=== PATIENT | male | born 1940 ===

== ENCOUNTER 2016-12-31 06:26 | Day surgery (SDC) | payer MEDICARE, MEDICAID ==
[2016-12-19 08:27] VITALS: BMI 21.5
[~2016-12-31 06:26] MED LIST: Ciprofloxacin 0.3% OPTH SOLN OS SCH; Flurbiprofen 0.03% Opht SOLN OS SCH; Lactated Ringer's 500 ML IV ONE; Phenylephrine 2.5% Opht Soln OS SCH; Tropicamide 1% Opht SOLUTION OS SCH; acetaZOLAMIDE 500 mg SR Cap PO ONE
[2016-12-31] MEDS ORDERED: Lactated Ringer's 500 ML IV ONE (07:10)
[2016-12-31 07:17] VITALS: O2SAT 100
[2016-12-31] MEDS ORDERED: Midazolam 2 MG/2 ML VIAL ONE ×2 (08:01→08:57)
[2016-12-31] MEDS: Povidone Iodine Ophthalmic 5% Soln ONE ×2 (08:03→08:15)
[2016-12-31] MEDS: Tetracaine 0.5% Ophth (OR ONLY) ONE ×2 (08:04→08:15)
[2016-12-31] MEDS: Carbachol 0.01% IO ONE ×2 (08:05→08:30)
[2016-12-31] MEDS: Chondroitin/Hyaluronate Opth Syringe KIT (0.55 ml-0.5 ml) IO ONE ×2 (08:07→08:30)
[2016-12-31] MEDS: Hyaluronidase Human, Recombi 150 U/ML VIAL ONE ×2 (08:08→08:30)
[2016-12-31] MEDS: Lidocaine 2% Inj (20ml) ONE ×2 (08:08→08:15)
[2016-12-31] MEDS ORDERED: Phenylephrine 10 mg/ml Inj ONE (08:11)
[2016-12-31] MEDS: Tobramycin/Dexamethasone OPHT OINT ONE ×2 (08:32→08:42)
[2016-12-31 10:51] VITALS: BP 120/59; PULSE 63; RESP 19; TEMP 97.3
--- NOTE | 2016-12-31 10:55 | OP ---
PROCEDURE DATE: 12/31/2016 PREOPERATIVE DIAGNOSIS: CATARACT, LEFT EYE. POSTOPERATIVE DIAGNOSIS: CATARACT, LEFT EYE. OPERATIVE PROCEDURE: PHACOEMULSIFICATION, LEFT EYE, INSERTION OF POSTERIOR CHAMBER IMPLANT. SURGEON: Dr. Kevin Boothe. COSURGEON: Dr. Michael Mata. ANESTHESIA TYPE: LOCAL WITH INTRAVENOUS SEDATION. PROCEDURE: The patient was brought into the operating room, placed in supine position, prepped and dr aped in the usual fashion for ophthalmic surgery. Lid speculum inserted, lids and exposin g globe. A side port incision was made superiorly and inferiorly with a disposable sharp blade. Ant erior chamber was filled with Viscoat. A near clear corneal incision was made temporally with a 2.75 millimeter keratome. Capsulorrhexis was then performed with Utrata forceps. Hydrodissection parul d out with balanced salt solution. Nucleus was phacoemulsified. Remaining cortical fragments were r emoved with a split irrigation and aspiration system. The capsular sac was filled with Provisc. A p osterior chamber lens was then injected into the capsular sac and rotated into horizontal position. Provisc was aspirated out of the anterior chamber. The pupil was constricted with Miochol. The woun d was found to be watertight. Topical Betadine, Timoptic and TobraDex ointment and pressure patch we re applied. The patient tolerated the procedure well. Kevin Boothe MD cc: [id number] TT: 12/31/2016 10:54:11 tn
== END 2016-12-31 09:43 | disposition home or self-care (01) ==
LOC: C.SDS 06:26
PROVIDERS: ATTEND Ophthalmology
DX: H26.9 Unspecified cataract (principal)
CPT/HCPCS: 66984; J2250; J2370; J3010; J3470; J7120; V2632

== ENCOUNTER 2017-02-04 06:58 | Day surgery (SDC) | payer MEDICARE, MEDICAID ==
[2016-12-19 08:25] VITALS: BMI 21.5
[~2017-02-04 06:58] MED LIST changes: +Ciprofloxacin 0.3% OPTH SOLN OD SCH; -Ciprofloxacin 0.3% OPTH SOLN OS SCH; +Flurbiprofen 0.03% Opht SOLN OD SCH; -Flurbiprofen 0.03% Opht SOLN OS SCH; +Phenylephrine 2.5% Opht Soln OD SCH; -Phenylephrine 2.5% Opht Soln OS SCH; +Tropicamide 1% Opht SOLUTION OD SCH; -Tropicamide 1% Opht SOLUTION OS SCH
[2017-02-04] MEDS ORDERED: Carbachol 0.01% IO ONE (07:15)
[2017-02-04] MEDS ORDERED: Povidone Iodine Ophthalmic 5% Soln ONE (07:15)
[2017-02-04] MEDS ORDERED: Tetracaine 0.5% Ophth (OR ONLY) ONE (07:16)
[2017-02-04] MEDS ORDERED: Lidocaine 2% Inj (20ml) ONE (07:16)
[2017-02-04] MEDS ORDERED: Tobramycin/Dexamethasone OPHT OINT ONE (07:16)
[2017-02-04] MEDS ORDERED: Hyaluronidase Human, Recombi 150 U/ML VIAL ONE (07:17)
[2017-02-04] MEDS ORDERED: Chondroitin/Hyaluronate Opth Syringe KIT (0.55 ml-0.5 ml) IO ONE (07:17)
[2017-02-04] MEDS ORDERED: Lactated Ringer's 500 ML IV ONE (07:45)
[2017-02-04] MEDS ORDERED: Midazolam 2 MG/2 ML VIAL ONE (07:56)
[2017-02-04] MEDS ORDERED: acetaZOLAMIDE 500 mg SR Cap PO ONE (09:00)
[2017-02-04 09:15] VITALS: O2SAT 98
[2017-02-04 09:52] VITALS: BP 139/61; PULSE 56; RESP 19; TEMP 97.3
--- NOTE | 2017-02-04 10:29 | OP ---
PROCEDURE DATE: 02/04/2017 PREOPERATIVE DIAGNOSIS: CATARACT, RIGHT EYE. POSTOPERATIVE DIAGNOSIS: CATARACT, RIGHT EYE. OPERATIVE PROCEDURE: PHACOEMULSIFICATION, RIGHT EYE, INSERTION OF POSTERIOR CHAMBER IMPLANT. SURGEON: Dr. Kevin Boothe. COSURGEON: Dr. Mata. ANESTHESIA TYPE: LOCAL WITH INTRAVENOUS SEDATION. PROCEDURE: The patient was brought into the operating room, placed in supine position, prepped and dr aped in the usual fashion for ophthalmic surgery. Lid speculum inserted, lids and exposin g globe. A side port incision was made superiorly and inferiorly with a disposable sharp blade. Ant erior chamber was filled with Viscoat. A near clear corneal incision was made temporally with a 2.75 millimeter keratome. Capsulorrhexis was then performed with Utrata forceps. Hydrodissection parul d out with balanced salt solution. Nucleus was phacoemulsified. Remaining cortical fragments were r emoved with a split irrigation and aspiration system. The capsular sac was filled with Provisc. A p osterior chamber lens was then injected into the capsular sac and rotated into horizontal position. Provisc was aspirated out of the anterior chamber. The pupil was constricted with Miochol. The woun d was found to be watertight. Topical Betadine, Timoptic and TobraDex ointment and pressure patch we re applied. The patient tolerated the procedure well. Kevin Boothe MD cc: [id number] TT: 02/04/2017 10:28:32 md
== END 2017-02-04 09:50 | disposition home or self-care (01) ==
LOC: C.SDS 06:58
PROVIDERS: ATTEND Ophthalmology
DX: H26.9 Unspecified cataract (principal)
CPT/HCPCS: 66984; J2250; J3010; J3470; J7120

== ENCOUNTER 2018-10-08 20:24 | Emergency (ER) | payer MEDICARE, MEDICAID ==
[2018-10-08 20:25] VITALS: BMI 21.5
--- NOTE | 2018-10-08 21:10 | C.PDOC ---
History Of Present Illness 77 year old male presents to the ED c/o right hip, right hip and right sided chest pain. Patient reports he trip and fell over a step and hurt his right side. Patient states he remembers the events, able to speak in complete sentence s. Patient denies LOC, headache, visual changes, dizziness, weakness, numbness, SOB, palpitations. - HPI Time Seen by Provider: 10/08/18 21:10 Chief Complaint (Nursing): Trauma History Per: Patient History/Exam Limitations: no limitations Onset/Duration Of Symptoms: Hrs Injury Occurred (Timing): Just Before Arrival Location Of Injury: Right: Arm, Chest, Hand Recent travel outside of the [place]: No Additional History Per: Patient - Fall Fall:Prior To Injury: Tripped Past Medical History Reviewed: Historical Data, Nursing Documentation, Vital Signs Vital Signs: Last Vital Signs Temp 98.2 F 10/08/18 20:35 Pulse 64 10/08/18 20:35 Resp 16 10/08/18 20:35 BP 158/72 H 10/08/18 20:35 Pulse Ox 96 10/08/18 20:35 - Medical History PMH: COPD Denies: Chronic Kidney Disease Surgical History: No Surg Hx Family History: States: Unknown Family Hx - Social History Hx Alcohol Use: No Hx Substance Use: No Review Of Systems Constitutional: Negative for: Fever, Chills Eyes: Negative for: Vision Change Cardiovascular: Positive for: Chest Pain. Negative for: Palpitations Respiratory: Negative for: Shortness of Breath Gastrointestinal: Negative for: Nausea, Vomiting, Abdominal Pain Musculoskeletal: Positive for: Arm Pain, Hand Pain Skin: Negative for: Rash Neurological: Negative for: Weakness, Numbness, Headache Physical Exam - Physical Exam Appears: Non-toxic, No Acute Distress Skin: Warm, Dry Head: Normacephalic Eye(s): bilateral: Normal Inspection, PERRL, EOMI Oral Mucosa: Moist Neck: No Midline Cervical Tenderness, Supple Chest: Symmetrical, Tenderness (right sided chest wall), Other (no crepitus) Respiratory: No Rales, No Rhonchi, No Wheezing Gastrointestinal/Abdominal: Soft, No Tenderness, No Guarding, No Rebound Back: Normal Inspection Extremity: Tenderness (over right thumb), Capillary Refill (< 2 seconds) Extremity: Bilateral: Atraumatic, Normal Color And Temperature, Normal ROM Pulses: Left Radial: Normal, Right Radial: Normal Neurological/Psych: Oriented x3, Normal Speech, Normal Cognition Gait: Steady ED Course And Treatment - Laboratory Results Result Diagrams: 10/08/18 21:40 10/08/18 21:40 ECG: Interpreted By Me, Viewed By Me ECG Rhythm: Sinus Rhythm, Nonspecific Changes (ST/T wave) Rate From EC (BPM) O2 Sat by Pulse Oximetry: 96 (ON RA) Pulse Ox Interpretation: Normal - Other Rad hand X-Ray: Interpreted by Me, Viewed By Me Interpretation: no fx or dislocation Progress Note: Plan: - Labs. - CT Cspine. - CT chest,abd,pelvis. - EKG. - right hand x-ray. - Motrin 600 mg PO. - UA Reevaluation Time: 00:14 Reassessment Condition: Improved Disposition Counseled Patient/Family Regarding: Studies Performed, Diagnosis, Need For Followup, Rx Given - Disposition Referrals: [facility] [Outside] [facility]ly [facility], [facility] [Outside] Disposition: HOME/ ROUTINE Disposition Time: 21:10 Condition: FAIR Additional Instructions: Thank you for letting us take care of you today. Your provider was Dr. Stauffer . You were treated for fall, chest wall contusions . The emergency medical care you received today was directed at your acute symptoms. If you were prescribed any medication, please fill it and take as directed. It may take several days for your symptoms to resolve. Return to the Emergency Department if your symptoms worsen, do not improve, or if you have any other problems. Please contact your doctor or call one of the physicians/clinics you have been referred to that are listed on the Patient Visit Information form that is included in your discharge packet. Bring any paperwork you were given at discharge with you along with any medications you are taking to your follow up visit. Our treatment cannot replace ongoing medical care by a primary care provider (PCP) outside of the emergency department. Also do follow up regarding lung nodule found on the chest ct Prescriptions: Ibuprofen [Motrin] 1 tab PO TID PRN #30 tab PRN Reason: Pain Instructions: Bruised Rib (DC), Contusion (DC), Pulmonary Nodule Forms: [employer] (French) - Clinical Impression Clinical Impression: Fall, Chest wall contusion, Thumb pain, Lung nodule - Scribe Statement The provider has reviewed the documentation as recorded by the Scribe Adithya Logan All medical record entries made by the Scribe were at my direction and personally dictated by me. I have reviewed the chart and agree that the record accurately reflects my personal performance of the history, physical exam, medical decision making, and the department course for this patient. I have also personally directed, reviewed, and agree with the discharge instructions and disposition.
[2018-10-08 21:45] LABS: BASO # 0.1 K/uL (0.0-0.2); BASO % 0.8 % (0.0-2.0); EOS # 0.2 K/uL (0.0-0.7); EOS % 2.1 % (0.0-4.0); HEMOGLOBIN 14.5 g/dL (12.0-18.0); LYMPH # 2.5 K/uL (1.0-4.3); LYMPH % 24.5 % (20.0-40.0); MEAN CELL VOLUME 88.9 fL (80.0-94.0); MEAN CORPUSCULAR HEMOGLOBIN 28.3 pg (27.0-31.0); MEAN CORPUSCULAR HGB CONC 31.8 g/dL (33.0-37.0); MEAN PLATELET VOLUME 9.2 fL (7.2-11.7); MONO # 0.7 K/uL (0.0-0.8); MONO % 7.2 % (0.0-10.0); NEUT # 6.8 K/uL (1.8-7.0); NEUT % 65.4 % (50.0-75.0); NRBC % 0.1 % (0.0-2.0); RBC 5.14 Mil/uL (4.40-5.90); RED CELL DISTRIBUTION WIDTH 13.4 % (11.5-14.5); WHITE BLOOD COUNT 10.4 K/uL (4.8-10.8)
[2018-10-08 21:53] LABS: PROTHROMBIN TIME 10.8 SECONDS (9.7-12.2)
[2018-10-08 21:56] LABS: ALB/GLOB RATIO 1.3 (1.0-2.1); ALBUMIN 4.5 g/dL (3.5-5.0); ALT/SGPT 26 U/L (21-72); AST/SGOT 27 U/L (17-59); BLOOD UREA NITROGEN 18 mg/dL (9-20); CALCIUM 9.6 mg/dl (8.6-10.4); GFR NON-AFRICAN AMERICAN > 60
[2018-10-08 22:16] LABS: SQUAMOUS EPITHIAL < 1 /hpf (0-5); URINE BILIRUBIN NEGATIVE (NEGATIVE); URINE BLOOD NEGATIVE (NEGATIVE); URINE CLARITY Clear (Clear); URINE COLOR Yellow (YELLOW); URINE GLUCOSE (UA) NORMAL (Normal); URINE LEUKOCYTE ESTERASE NEG Leu/uL (Negative); URINE PROTEIN NEGATIVE (NEGATIVE); URINE UROBILINOGEN NORMAL mg/dL (0.2-1.0)
[2018-10-09 00:56] VITALS: BP 155/78; PULSE 82; RESP 16; TEMP 98.6; O2SAT 99
--- NOTE | 2018-10-09 09:07 | CT ---
Date of service: 10/08/2018 PROCEDURE: CT Cervical Spine without contrast HISTORY: fall COMPARISON: None available. TECHNIQUE: Axial computed tomography images were obtained of the cervical spine without the use of intravenous contrast. Coronal and sagittal reformatted images were created and reviewed. Radiation dose: Total exam DLP = 455.74 mGy-cm. This CT exam was performed using one or more of the following dose reduction techniques: Automated exposure control, adjustment of the mA and/or kV according to patient size, and/or use of iterative reconstruction technique. FINDINGS: VERTEBRAE: No fracture. Normal alignment. No destructive bony lesion. DISCS/SPINAL CANAL/NEURAL FORAMINA: There are moderate to mildly severe disc and endplate degenerative changes more prominent at C5-C6. Multilevel anterior and posterior osteophyte formation seen. There are posterior osteophyte bulging disc noted at C3-C4 C4-C5 and C5-C6 more prominent at C5-C6 associated with mild spinal and neural foraminal narrowing . there is moderate to severe narrowing of the intervertebral disc is space at C5-C6 and [id number] narrowing of the intervertebral disc is space at C3-C4 and C4-C5 noted. PARASPINAL SOFT TISSUES: Unremarkable. OTHER FINDINGS: Incidentally noted is partially calcified lesion at right lung upper lobe/lung apex measures 3 centimeter in the transverse diameter and 2.5 centimeter in the AP diameter. IMPRESSION: No evidence of acute fracture or subluxation. Moderate to mildly severe disc and endplate degenerative changes more prominent at C5-C6 as discussed above. Incidentally noted is partially calcified lesion at right lung apex measures 3 x 2.5 centimeter. Preliminary report contains concordant findings was submitted by [facility] Radiology.
--- NOTE | 2018-10-09 09:25 | CT ---
Date of service: 10/08/2018 PROCEDURE: CT Chest, Abdomen and Pelvis with intravenous contrast HISTORY: fall COMPARISON: Comparison is made with the previous CT of the chest dated 12/25/2016 TECHNIQUE: IV dose administered: 100 mL of Visipaque 320 intravenously. Axial and reformatted coronal and sagittal CT images of the chest abdomen and pelvis were obtained after IV contrast administration. Radiation dose: Total exam DLP = 423.87 mGy-cm. This CT exam was performed using one or more of the following dose reduction techniques: Automated exposure control, adjustment of the mA and/or kV according to patient size, and/or use of iterative reconstruction technique. FINDINGS: CT CHEST WITH CONTRAST: LUNGS: Again noted is partially calcified lesion at right lung apex measures approximately 3 x 2.5 centimeter likely represent sequela of prior infection or inflammatory process and calcified granuloma. There are adjacent calcified nodule also in the right lung upper lobe there are also adjacent linear opacities likely represent scar tissue. Mild emphysematous changes are again noted. No evidence of new infiltrate or consolidation in the lungs. No CT evidence of lung contusion. MEDIASTINUM: Unremarkable. Normal caliber aorta and pulmonary arterial trunk. No aortic dissection. Normal size heart. LYMPH NODES: Partially calcified the lymph nodes in the mediastinum is again noted. PLEURA: Unremarkable. No pneumothorax. No pleural fluid. BONES: There is slightly displaced fracture at the posterior right 10th rib. There is suspicious for nondisplaced fracture at the adjacent right 9, 11th and 12th ribs. OTHER FINDINGS: None. CT ABDOMEN AND PELVIS: LIVER: Unremarkable. No gross lesion or ductal dilatation. GALLBLADDER AND BILE DUCTS: Unremarkable. PANCREAS: Unremarkable. No gross lesion or ductal dilatation. SPLEEN: Unremarkable. ADRENALS: Unremarkable. No mass. KIDNEYS AND URETERS: There are multiple cystic lesions in the kidneys larger and more on the left. No evidence of hydronephrosis or hydroureter. No evidence of perinephric fluid. VASCULATURE: No evidence of aortic aneurysm or dissection. Mild atherosclerotic disease and foci of calcification noted. BOWEL: No evidence of bowel obstruction . APPENDIX: No evidence of appendicitis PERITONEUM: Unremarkable. No free fluid. No free air. LYMPH NODES: Unremarkable. No enlarged lymph nodes. BLADDER: Unremarkable. REPRODUCTIVE: Moderately enlarged prostate and seminal vesicles noted. BONES: No acute fracture. OTHER FINDINGS: None. IMPRESSION: Fractures of the right lower ribs noted more prominent at right 10th rib. No evidence of pleural effusion or pneumothorax. No evidence of intra-abdominal or pelvic acute traumatic injury. Incidental findings as discussed above. Preliminary report contains concordant findings was submitted by [facility] Radiology.
--- NOTE | 2018-10-09 13:51 | RAD ---
Date of service: 10/08/2018 PROCEDURE: Right Thumb radiographs. HISTORY: fall COMPARISON: None. TECHNIQUE: AP radiograph of the right hand, as well as spot oblique and lateral images of thumb were obtained. FINDINGS: RIGHT THUMB: There is small bony protrusion at the base of the distal phalanx of the right thumb noted. No definite evidence of acute displaced fracture otherwise. Remainder of the right hand (as seen on the AP view) grossly unremarkable. JOINTS: Normal. SOFT TISSUES: Normal. OTHER FINDINGS: None. IMPRESSION: Small bony protrusion at base of the distal phalanx of the right thumb noted. No definite evidence of acute fracture or dislocation otherwise.
--- NOTE | 2018-10-11 09:40 | CARD ---
APPROVED REPORT Date of service: 10/08/2018 EKG Measurement Heart [id number] <Conclusion> Sinus bradycardia Otherwise normal ECG
== END 2018-10-09 00:56 | disposition home or self-care (01) ==
LOC: C.ER 20:24
DX: S20.211A Contusion of right front wall of thorax, initial encounter (principal); W01.0XXA Fall on same level from slipping, tripping and stumbling without subsequent striking against object, initial encounter; M79.644 Pain in right finger(s); R91.1 Solitary pulmonary nodule